=== PATIENT | female | born 1970 | race Caucasian/White ===

== ENCOUNTER 2021-11-28 09:13 | Day surgery (SDC) | payer OTHER ==
[2021-11-26 11:32] VITALS: BMI 25.8
[~2021-11-28 09:13] MED LIST: LACTATED RINGERS 1,000 ML IV SCH; LIDOCAINE 1% (10MG/ML) FOR IV START INTRADERMA PRN
[2021-11-28 10:17] VITALS: TEMP 97.5
[2021-11-28] MEDS ORDERED: PROPOFOL 10 MG/ML 20 ML VIAL IV ONE (10:41)
--- NOTE | 2021-11-28 10:48 | P.GSHP ---
History of Present Illness H&P Date: 11/28/21 Chief Complaint: Family history of colon cancer This is a 51-year-old female who presents today for colonoscopy. Patient has a strong family history of colon cancer with her father being really recently diagnosed with colon cancer. Past Medical History Past Medical History: Thyroid Disorder Additional Past Medical History / Comment(s): Anemia, Graves disease dx. about 6 month ago. Fell and hit her head about 2 years ago. MRI showed a mini stroke. History of Any Multi-Drug Resistant Organisms: None Reported Additional Past Surgical History / Comment(s): D&C, WISDOM TEETH, Uterus and L ovary removed. Past Anesthesia/Blood Transfusion Reactions: No Reported Reaction Smoking Status: Vaper - Past Family History Father Family Medical History: Cancer Additional Family Medical History / Comment(s): Colon Mother Family Medical History: No Reported History Medications and Allergies Home Medications Medication Instructions Recorded Confirmed Type ARIPiprazole [Abilify] 2 mg PO DAILY 11/26/21 11/28/21 History Aspirin [Adult Low Dose Aspirin EC] 81 mg PO DAILY 11/26/21 11/28/21 History Buprenorphine HCl/Naloxone HCl 1 each SL BID 11/26/21 11/28/21 History [Suboxone 4 mg-1 mg Sl Film] Galcanezumab-Gnlm [Emgality Pen] 120 mg SQ Q30D 11/26/21 11/28/21 History Methyphenidate 54 mg PO DAILY 11/26/21 11/28/21 History Multivitamin/Iron/Folic Acid 1 each PO DAILY 11/26/21 11/28/21 History [Centrum Women Tablet] Topiramate [Topamax] 50 mg PO BID 11/26/21 11/28/21 History Venlafaxine HCl [Effexor XR] 150 mg PO DAILY 11/26/21 11/28/21 History lamoTRIgine [LaMICtal] 150 mg PO BID 11/26/21 11/28/21 History Allergies Allergy/AdvReac Type Severity Reaction Status Date / Time No Known Allergies Allergy Verified 11/28/21 10:10 Surgical - Exam Vital Signs Temp Pulse Resp BP Pulse Ox 97.5 F L 67 16 120/74 100 11/28/21 10:16 11/28/21 10:16 11/28/21 10:16 11/28/21 10:16 11/28/21 10:16 - General well developed, well nourished, no distress - Eyes PERRL - ENT normal pinna - Neck no masses - Respiratory normal expansion - Cardiovascular Rhythm: regular - Abdomen Abdomen: soft, non tender Assessment and Plan Assessment: History of colon cancer. We'll perform colonoscopy.
--- NOTE | 2021-11-28 11:07 | P.OP ---
Date of Procedure: 11/28/21 Preoperative Diagnosis: Family historycolonCancer Postoperative Diagnosis: Normal colonoscopy Procedure(s) Performed: Colonoscopy Anesthesia: MAC Surgeon: Naun Tejada Pathology: none sent Condition: stable Disposition: PACU Description of Procedure: PROCEDURE: The patient was placed on the endoscopy table in the lateral position. Digital rectal examination was performed which revealed no abnormalities. . Flexible colonoscope was then placed in the patient's anus and passed throughout the entire colon. The ileocecal valve was visualized. The cecum, ascending, transverse, descending and sigmoid colon were normal. The rectum was normal as well. There were no masses, polyps or diverticula noted in the entire colon. SUMMARY OF FINDINGS: Normal colonoscopy.
[2021-11-28 11:21] VITALS: BP 102/68
[2021-11-28 11:32] VITALS: PULSE 58; RESP 18
== END 2021-11-28 12:14 | disposition home or self-care (01) ==
LOC: ORWHC2ENDO 09:13
PROVIDERS: ATTEND Surgery
DX: Z12.11 Encounter for screening for malignant neoplasm of colon (principal); Z80.0 Family history of malignant neoplasm of digestive organs; E05.00 Thyrotoxicosis with diffuse goiter without thyrotoxic crisis or storm; D64.9 Anemia, unspecified; Z86.73 Personal history of transient ischemic attack (TIA), and cerebral infarction without residual deficits; Z98.890 Other specified postprocedural states; F17.290 Nicotine dependence, other tobacco product, uncomplicated; G43.909 Migraine, unspecified, not intractable, without status migrainosus; F41.9 Anxiety disorder, unspecified; F32.A Depression, unspecified; F90.9 Attention-deficit hyperactivity disorder, unspecified type; Z97.2 Presence of dental prosthetic device (complete) (partial); Z79.82 Long term (current) use of aspirin; Z79.891 Long term (current) use of opiate analgesic; Z79.899 Other long term (current) drug therapy
CPT/HCPCS: J2704; G0105